=== PATIENT | male | born 1940 | race Caucasian/White ===

== ENCOUNTER → 2020-02-19 10:30 | Outpatient (CLI) | payer MEDICARE, OTHER, SELFPAY ==
--- NOTE | ~2020-02-19 | XR_ITS ---
EXAMINATION: XR chest 2V DATE: 02/19/2020 11:12 INDICATION: Chronic diastolic congestive heart failure. TECHNIQUE: Frontal and lateral views of the chest were obtained. COMPARISON: Chest 2 views 12/07/2013, chest CT 07/16/17 FINDINGS: There is chronic eventration of anterior right hemidiaphragm. There is mild atelectasis at right lung base. No pleural effusion or pneumothorax. The heart size is normal. There are changes of heart valve replacement and coronary artery bypass grafting. IMPRESSION: 1. Mild atelectasis at right lung base. Reviewed, dictated and finalized at location B. RAMMING MANAGER
== END ==
PROVIDERS: PCP Family Medicine; Visit Provider Family Medicine
DX: I50.32 Chronic diastolic (congestive) heart failure (principal); J98.11 Atelectasis; Z95.1 Presence of aortocoronary bypass graft; Z95.4 Presence of other heart-valve replacement
CPT/HCPCS: 71046

== ENCOUNTER → 2020-07-09 08:32 | Outpatient (CLI) | payer MEDICARE, OTHER, SELFPAY ==
--- NOTE | ~2020-07-09 | MR_ITS ---
EXAMINATION: MR lumbar spine wo con EXAM DATE: 07/09/2020 09:11 INDICATION: M47.817 - Spondylosis without myelopathy or radiculopathy. Low back walking up, difficult y walking. TECHNIQUE: Multi-sequential, multiplanar MR images of the lumbar spine were obtained without contrast . Sagittal T1, T2, T2 fat saturation images. Axial T2 weighted images. Correlation is made to lumba r x-ray 2018. FINDINGS: There is moderate to severe disc disease L2-3, with 4 mm retrolisthesis. Mild to moderate d isc disease L-1-2, L3-4 and L4-5. There is 5 mm anterolisthesis L4 on L5 without spondylolysis suspec anjelica. The conus medullaris terminates at the T12 level and has normal signal intensity and morphology. Mild diffuse loss of vertebral body heights. Paraspinal soft tissue is unremarkable. Level by level evaluation: T12-L1: Disc does not extend beyond the endplate margin. Facet arthropathy: Minimal. Neural foraminal stenosis: No stenosis. Central canal stenosis: No stenosis. L1-L2: There is a mild diffuse disc bulge. Facet arthropathy: Mild. Neural foraminal stenosis: Mild to moderate right, mild left. Central canal stenosis: No stenosis. L2-L3: There is a moderate diffuse disc bulge. Facet arthropathy: Moderate. Neural foraminal stenosis: Moderate bilateral. Central canal stenosis: Mild to moderate. L3-L4: There is a large diffuse disc bulge. Facet arthropathy: Moderate to severe left, moderate right. . Ligamentum flavum enlargement. Neural foraminal stenosis: Moderate to severe left, moderate right. Central canal stenosis: Severe. L4-L5: There is a moderate to large diffuse disc bulge. Facet arthropathy: Severe. Neural foraminal stenosis: Moderate bilateral. Central canal stenosis: Moderate to severe. L5-S1: There is a mild diffuse disc bulge. Facet arthropathy: Moderate. Neural foraminal stenosis: Mild bilateral. Central canal stenosis: No stenosis. IMPRESSION: 1. L3-4 severe central canal stenosis. 2. Advanced mid lumbar facet arthropathy. Reviewed, dictated and finalized at location A.
== END ==
PROVIDERS: PCP Family Medicine; Visit Provider Family Medicine
DX: M47.817 Spondylosis without myelopathy or radiculopathy, lumbosacral region (principal); M48.07 Spinal stenosis, lumbosacral region
CPT/HCPCS: 72148

== ENCOUNTER → 2020-11-12 12:28 | Outpatient (CLI) | payer MEDICARE, OTHER, SELFPAY ==
--- NOTE | ~2020-11-12 | XR_ITS ---
EXAMINATION: XR chest 2V DATE: 11/12/2020 13:02 INDICATION: Personal history of COVID 19 TECHNIQUE: PA and lateral views of the chest are obtained. COMPARISON: 02/19/2020 FINDINGS: There is mild chronic elevation of the right hemidiaphragm. There is no pleural effusion or pneumothorax. The heart size is normal. Median sternotomy wires are consistent with prior cardiac stafford rgery. There are bridging osteophytes at multiple levels in the spine, consistent with diffuse idiopa thic skeletal hyperostosis (DISH). IMPRESSION: 1. No acute cardiopulmonary abnormality. Reviewed, dictated and finalized at location A.
== END ==
PROVIDERS: PCP Family Medicine; Visit Provider Family Medicine
DX: R53.83 Other fatigue (principal); Z86.16 Personal history of COVID-19; M25.78 Osteophyte, vertebrae
CPT/HCPCS: 71046

== ENCOUNTER 2021-02-25 04:37 | Emergency (ER) | payer MEDICARE, OTHER, SELFPAY ==
--- NOTE | ~2021-02-25 | CT_ITS ---
EXAMINATION: CT brain wo con, CT cervical spine wo con INDICATION: fall hematoma on R forehead . Head injury. TECHNIQUE: Spiral CT of the head was performed without contrast. Axial, coronal and sagittal images were reviewed. Spiral CT of the cervical spine was performed without contrast. Axial images were rev iewed. Coronal and sagittal reformatted images were also reviewed. The dose-length product (DLP) fo r this examination was 681.00 (accession [id number]), 449.85 (accession [id number]) mGy-cm. The exposure was tailored according to patient size, and iterative reconstruction (ASIR) was used as additional dose reduction technique. There is no prior study for comparison. FINDINGS: HEAD CT: There are dural ossifications and calcifications along the falx There is no acute intraparen chymal hemorrhage. No evidence of intraparenchymal brain mass lesion. No evidence of acute infarcti on. Mild microangiopathy and mild to moderate cerebral atrophy. Small old right periventricular lacu patricio infarction. Small old bilateral basal ganglia lacunar infarctions. There is no mass effect or m idline shift. There is no obstructive hydrocephalus suspected. There are no extra-axial collections. There are no acute calvarial fractures. The orbits are unremarkable. Moderate-sized right frontal scalp contusion/hematoma. The visualized sinuses and mastoid air cells are well aerated. CERVICAL CT: There is no evidence of acute cervical fracture. The odontoid process is intact. Pre- dens space is normal. Prevertebral soft tissue is normal. There are no soft tissue abnormalities id entified. There is no disc space widening or traumatic vertebral body subluxation suspected. There is advanced cervical facet arthropathy. Large lower cervical endplate osteophytes. Mild to moderate c ervical disc disease. Moderate to severe left neural foraminal stenosis at C3-4, less at the other ce rvical levels. A detailed level by level evaluation of spondylosis can be added as addendum if reques anjelica. IMPRESSION: 1. No acute intracranial findings or cervical fracture. 2. 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 3. Cervical spondylosis. 4. Right frontal scalp contusion. Reviewed, dictated and finalized at location D. R COUNSELOR IMPRESSION: 1. No acute intracranial findings or cervical fracture. 2. 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 3. Cervical spondylosis. 4. Right frontal scalp contusion.
--- NOTE | ~2021-02-25 | XR_ITS ---
EXAMINATION: XR hand LT min 3V DATE: 02/25/2021 05:15 INDICATION: Left hand injury. TECHNIQUE: 3 views of left hand were obtained. COMPARISON: None. FINDINGS: Bone alignment is normal. No fracture. There is moderate osteoarthritis of triscaphe joint and severe osteoarthritis of first carpometacarpal joint. There is moderate osteoarthritis of second metacarpophalangeal joint and mild osteoarthritis of many of the other metacarpophalangeal joints and interphalangeal joints. There is moderate osteoarthritis of second distal interphalangeal joint. IMPRESSION: 1. Polyarticular osteoarthritis. Reviewed, dictated and finalized at location A. L DRIVER
[2021-02-25 04:36] VITALS: BP 146/78; PULSE 86; RESP 18; TEMP 36.2; O2SAT 94
--- NOTE | 2021-02-25 04:51 | ECG_ITS ---
Measurements Intervals [place] Rate: 82 P: 34 WY: 248 QRS: -1 QRSD: 162 T: 47 QT: 401 QTc: 469 Interpretive Statements SINUS RHYTHM WITH FIRST DEGREE AV BLOCK ATRIAL PREMATURE COMPLEXES LEFT BUNDLE BRANCH BLOCK BASELINE ARTIFACT- I, II, III, AVR, AVL, AVF, V1-V6 ABNORMAL ECG Electronically Signed On 02-25-2021 5:52:03 PREFINISH OPERATOR by Rafael Martinez D.O.
--- NOTE | 2021-02-25 04:55 | ED.FALL ---
HPI - Fall General Chief Complaint: Fall Stated Complaint: dizzy, fall Time Seen by Provider: 02/25/21 04:46 Source: patient History of Present Illness HPI Narrative: Patient presents after a fall. Patient reports he got up to use the restroom this evening after pain he attempted to stand up and felt like the room spine as if someone grabbed his head and pushed it. He fell down and struck the ground he denies any loss of consciousness he called his daughter who is a dynamite packing machine operator and given his head injury and him being on blood thinners who referred to the ER for evaluation. Patient reports he feels well now denies any chest pain or shortness of breath prior to the fall denies any headache he denies any focal numbness or weakness denies any neck pain. Reports he felt well prior to today Related Data Home Medications Medication Instructions Recorded Confirmed cholecalciferol (vitamin D3) 50 2,000 unit PO DAILY 02/16/19 11/12/20 mcg (2,000 unit) tablet clopidogrel 75 mg tablet 75 mg PO DAILY 02/16/19 11/12/20 multivitamin 1 tablet PO DAILY 02/16/19 11/12/20 zrvrbe-[id number] palm-min 17 cap PO 02/16/19 11/12/20 capsule tamsulosin 0.4 mg capsule 0.4 mg PO DAILY 02/16/19 11/12/20 mv-min-vit C 1,000 mg-elderberry ea PO 02/19/20 11/12/20 50 mg-herb 35.5mg effervescent tablet docusate sodium 100 mg capsule 100 mg PO DAILY 11/12/20 11/12/20 Allergies Allergy/AdvReac Type Severity Reaction Status Date / Time atorvastatin Allergy Unknown Muscle Verified 02/25/21 04:48 Spasms lisinopril Allergy Unknown Cough Verified 02/25/21 04:48 Review of Systems Review of Systems: CONSTITUTIONAL: Denies fever, chills, or sweats. EYES: Denies visual changes, redness, or discharge. ENT: Denies rhinorrhea, congestion, sore throat, or otalgia. CARDIOVASCULAR: Denies chest pain, palpitations, or edema. RESPIRATORY: Denies cough or dyspnea. GASTROINTESTINAL: Denies abdominal pain, nausea, vomiting, or diarrhea. GENITOURINARY: Denies dysuria or hematuria. SKIN: Denies rash or itching. MUSCULOSKELETAL: Denies back pain, joint pain, or myalgia. NEUROLOGIC: Denies headache, numbness, or weakness. PSYCHIATRIC: Denies anxiety or depression. All systems reviewed & are unremarkable except as noted in HPI and below PMFSH Past Medical History Medical History Aortic valvar stenosis BP (high blood pressure) CAD (coronary artery disease) Hollenhorst plaque, left eye Mixed hyperlipidemia Surgical History Surgical History History of colonoscopy with polypectomy 2016 History of MVR with cardiopulmonary bypass Hx of appendectomy S/P AVR (aortic valve replacement) S/P CABG x 3 S/P left knee arthroscopy Status post ventricular septal myectomy Family History Family History Sibling Family history of malignant neoplasm of breast in first degree relative Other Family history of congenital heart disease Family history of malignant neoplasm Social History Social History Social History: Smoking status: Never smoker Second hand tobacco smoke exposure: No Alcohol intake: never Substance use: never Substance use type: does not use Gender identity (if verbalized by the patient): Male Sexual Orientation (if Verbalized by the Patient): Straight or Heterosexual Exam Narrative: GENERAL: Well-appearing, well-nourished, and in no acute distress. HEAD: Normocephalic, hematoma and abrasion noted above the right orbit EYES: PERRLA and EOMI. ENT: Nares clear, no rhinorrhea or epistaxis. Mucous membranes moist. NECK: Supple. No masses. No JVD CHEST: Clear to auscultation. No respiratory distress. No wheezes rales or rhonchi HEART: Regular rate and rhythm. No murmur heard. Normal peripheral pulses. ABDOMEN:
[2021-02-25] MEDS: SODIUM CHLORIDE 0.9% IV 500 ML 999 ML IV CONT (05:20)
[2021-02-25 05:25] VITALS: BP 122/60; PULSE 76; RESP 16; O2SAT 96
--- NOTE | 2021-02-25 05:40 | PC.NURSE ---
Pt refusing straight catheter at this time. Urinal at bedside.
[2021-02-25 06:01] LABS: Basophils Absolute Auto 0.1 K/mm3 (0.0-0.1); Basophils Percent Auto 0.5 % (0.2-1.2); Eosinophils Absolute Auto 0.1 K/mm3 (0-0.3); Eosinophils Percent Auto 0.8 % (0-4.4); Hematocrit 41.1 % (42.0-52.0); Hemoglobin 13.4 g/dL (14.0-18.0); Immature Granulocyte Absolute 0.03 K/mm3 (0.00-0.031); Immature Granulocyte Percent A 0.3 % (0-0.5); Lymphocytes Percent Auto 13.3 % (18.3-44.2); Mean Corpuscular HGB Conc 32.6 g/dl (32-36); Mean Corpuscular Hemoglobin 31.4 pg (26-34); Mean Corpuscular Volume 96.3 fl (80-100); Mean Platelet Volume 11.8 fl (7.4-10.4); Monocytes Absolute Auto 0.8 K/mm3 (0.1-0.6); Monocytes Percent Auto 6.9 % (2.6-8.5); Neutrophils Absolute Auto 8.8 K/mm3 (1.3-6.7); Neutrophils Percent Auto 78.2 % (45.5-73.1); Platelet Count Result 150 k/mm3 (150-375); Red Blood Count 4.27 M/mm3 (4.6-6.20); Red Cell Distribution Width 14.9 % (11.5-14.5); White Blood Count 11.3 K/mm3 (4.5-10.0)
[2021-02-25 06:12] LABS: Lactic Acid Reflex 2.2 mmol/L (0.7-2.1); Magnesium 1.9 mg/dL (1.6-2.3)
[2021-02-25 06:13] LABS: Alanine Aminotransferase 16 U/L (4-50); Albumin Level 4.2 g/dL (3.5-5.1); Alkaline Phosphatase 63 U/L (38-126); Anion Gap 11 mmol/L (8-16); Aspartate Amino Transferase 27 U/L (17-59); Bilirubin,Total 0.6 mg/dL (0.2-1.3); Blood Urea Nitrogen 20 mg/dL (9-20); Calcium 9.1 mg/dL (8.4-10.2); Carbon Dioxide 23 mmol/L (22-30); Chloride 103 mmol/L (98-107); Estimated CRCL calculation 67 ml/min; Estimated Glomerular Filt Rate > 60; Glucose 119 mg/dL (65-110); Potassium 4.3 mmol/L (3.4-5.0); Sodium 137 mmol/L (137-145)
[2021-02-25 06:18] VITALS: BP 128/65; PULSE 76; RESP 16; O2SAT 94
[2021-02-25 06:24] LABS: Add Urine Microscopic? YES; Appearance Urine Clear (Clear); Bilirubin Urine Negative (Negative); Blood Urine Negative (Negative); Color Urine Yellow (Yellow); Glucose Urine UA Negative (Negative); Ketones Urine Negative (Negative); Leukocyte Esterase Ur Negative LEU/UL (Negative); Mucus Urine Rare /lpf; Nitrate Urine Negative (Negative); Protein Urine Negative (Negative); RBC Urine 0-2 /hpf (0-2); Specific Grav Ur 1.018 (1.001-1.035); Squamous Epithelial Cell Urine Rare /hpf (Few); Urobilinogen Urine Negative mg/dL (<2.0); WBC Urine 0-3 /hpf
[2021-02-25 07:03] LABS: Prothrombin Time 13.2 Seconds (11.1-14.7)
[2021-02-25 07:04] LABS: Partial Thromboplastin Time 23.4 SECONDS (22.3-36.8)
--- NOTE | 2021-02-25 07:48 | ECG_ITS ---
Measurements Intervals [place] Rate: 77 P: 10 W[place]: 242 QRS: 3 QRSD: 149 T: 51 QT: 442 QTc: 501 Interpretive Statements SINUS RHYTHM WITH FIRST DEGREE AV BLOCK ATRIAL PREMATURE COMPLEXES POSSIBLE LEFT ATRIAL ENLARGEMENT LEFT BUNDLE BRANCH BLOCK BASELINE ARTIFACT- I, II, III, AVR, AVL, AVF ABNORMAL ECG Electronically Signed On 02-25-2021 8:05:10 MATTRESS FINISHER by Rafael Martinez D.O.
[2021-02-25] MEDS: MECLIZINE HCL 25 MG TABLET PO (07:49)
[2021-02-25 08:16] VITALS: BP 129/64; PULSE 75; RESP 18; O2SAT 99
[2021-02-25 08:50] LABS: Reflex Lactic Acid Yes or No Add Lactic
== END 2021-02-25 08:19 | disposition home or self-care (01) ==
PROVIDERS: Emergency Provider Emergency Medicine; PCP Family Medicine
DX: S00.81XA Abrasion of other part of head, initial encounter (principal); S61.412A Laceration without foreign body of left hand, initial encounter; R42 Dizziness and giddiness; I35.0 Nonrheumatic aortic (valve) stenosis; I25.10 Atherosclerotic heart disease of native coronary artery without angina pectoris; I10 Essential (primary) hypertension; E78.2 Mixed hyperlipidemia; H34.212 Partial retinal artery occlusion, left eye; Z95.1 Presence of aortocoronary bypass graft; Z95.2 Presence of prosthetic heart valve; Z79.82 Long term (current) use of aspirin; Z79.02 Long term (current) use of antithrombotics/antiplatelets; I44.0 Atrioventricular block, first degree; I49.1 Atrial premature depolarization; I44.7 Left bundle-branch block, unspecified; M47.812 Spondylosis without myelopathy or radiculopathy, cervical region; M19.042 Primary osteoarthritis, left hand; W18.39XA Other fall on same level, initial encounter
CPT/HCPCS: 36415; 70450; 72125; 73130; 80053; 81001; 83605; 83735; 85025; 85610; 85730; 93005; 99284; A9270; J7040